=== PATIENT | female | born 1970 | race African-American/Black ===

== ENCOUNTER 2017-04-16 04:21 | Emergency (ER) | payer MEDICAID ==
[~2017-04-16] VITALS: Ht 170.2 cm; Wt 112.5 kg
[~2017-04-16 04:21] MED LIST: CLON0.5T; HYDR12.53
[2017-04-16] MEDS ORDERED: ALBUTEROL/IPRATROPIUM 2.5MG/0.5MG, 3 ML ONE (04:34)
[2017-04-16] MEDS ORDERED: DIPH25CA61 PO (04:54)
[2017-04-16] MEDS ORDERED: HYDR25TA11 PO (04:54)
[2017-04-16] MEDS ORDERED: POTA20TA6 PO (04:54)
[2017-04-16] MEDS ORDERED: DOCU100C8 PO (04:54)
[2017-04-16] MEDS ORDERED: LISI-170 PO (04:54)
[2017-04-16] MEDS ORDERED: CARV12.52 PO (04:54)
[2017-04-16] MEDS ORDERED: FURO40TA6 PO (04:54)
[2017-04-16] MEDS ORDERED: methylPREDNISolone SOD SUCC 125 MG/2 ML ONE (05:15)
[2017-04-16] MEDS ORDERED: SODIUM CHLORIDE FLUSH 10ML SYR IVF ONE (05:30)
[2017-04-16] MEDS ORDERED: methylPREDNISolone SOD SUCC 125 MG/2 ML IVP ONE (05:30)
[2017-04-16] MEDS ORDERED: ALBUTEROL/IPRATROPIUM 2.5MG/0.5MG, 3 ML NPPB ONE (05:30)
[2017-04-16 06:05] LABS: DAU SCREEN DISCLAIMER
[2017-04-16 06:22] LABS: ASPARTATE AMINO TRANSFERASE 29 U/L (15-37); BLOOD UREA NITROGEN 10 mg/dL (7-18)
[2017-04-16 06:36] LABS: IS PT STATUS REG ER OR PRE ER? YES
[2017-04-16 07:28] VITALS: BP 157/113
== END 2017-04-16 08:13 | disposition left against medical advice (07) ==
LOC: ED 05:42
DX: I50.1 Left ventricular failure, unspecified (principal); J20.9 Acute bronchitis, unspecified; J45.909 Unspecified asthma, uncomplicated; F12.180 Cannabis abuse with cannabis-induced anxiety disorder; F15.180 Other stimulant abuse with stimulant-induced anxiety disorder; F17.210 Nicotine dependence, cigarettes, uncomplicated
CPT/HCPCS: 36415; 71010; 80053; 80307; 81001; 83605; 83880; 84443; 84484; 85025; 85610; 85730; 87040; 87086; 93005; 93971; 94640; 96374; 99285; J2930; J7620

== ENCOUNTER 2021-03-10 05:36 | Emergency (ER) | payer MEDICAID ==
[~2021-03-10 05:36] MED LIST changes: +CARV12.52 PO; +DIPH25CA61 PO; +DOCU100C33 PO; +FURO40TA6 PO; +HYDR-826 PO; +HYDR12.517; -HYDR12.53; +LISI-170 PO; +POTA20TA6 PO
--- NOTE | 2021-03-10 06:00 | NUR ---
PT STATES RIGHT LEG WAS ULTRASOUND 3 DAYS AGO Addendum: 03/10/21 at 0602 by [email or web address] PT STATES THE LEFT HAS HAD CHONIC ISSUES, BUT THIS LAST WEEK HAS BEEN WORSE AND DID ULTRASOUND ON R LEG AT [facility]. WENT TO [facility] THE LAST MONTH AND HALF AND ADMITTED FOR CHF. EDEMA CAME ON SHOCKED PT AT [facility].
--- NOTE | 2021-03-10 06:26 | NUR ---
PAIN ON THE LEFT LEG. PT STATES IT HAS THE LEFT ANIYA WAS FINE A WEEK AGO.
--- NOTE | 2021-03-10 06:26 | NUR ---
CHF 4 OR 5 YEARS BUT NOT CAUSE. HTN TAKES LINSIPRIL, CORBETALOL. XARALETO.
[2021-03-10] MEDS ORDERED: ACETAMINOPHEN 325 MG TABLET PO ONE (06:30)
[2021-03-10] MEDS ORDERED: ACETAMINOPHEN 325 MG TABLET ONE (06:35)
--- NOTE | 2021-03-10 06:54 | NUR ---
REPORT GIVEN TO JOAN ZULUAGA.
--- NOTE | 2021-03-10 07:00 | NUR ---
REPORT FROM NEIDA ZULUAGA.
[2021-03-10 07:08] LABS: ALBUMIN 2.9 g/dL (3.4-5.0); ANION GAP 9 mmol/L (5-15); CALCIUM 8.7 mg/dL (8.5-10.1); CHLORIDE 108 mmol/L (98-107)
[2021-03-10 07:18] LABS: BASOPHILS % (AUTO) 1 % (0-1); EOSINOPHILS % (AUTO) 0 % (1-7); LYMPHOCYTES % (AUTO) 9 % (22-44); MEAN CORPUSCULAR HEMOGLOBIN 23.6 pg (27.0-34.8); MEAN CORPUSCULAR HGB CONC 30.9 g/dL (32.4-35.8); MEAN PLATELET VOLUME 7.8 fL (7.4-10.4); MONOCYTES % (AUTO) 6 % (2-9); NEUTROPHILS % (AUTO) 85 % (42-75); PLATELET COUNT 385 x10^3/uL (130-400); RED BLOOD COUNT 4.98 x10^6/uL (3.82-5.3); RED CELL DISTRIBUTION WIDTH 24.7 % (9.6-15.2)
[2021-03-10 07:40] LABS: MD MORPH REVIEW ONLY
[2021-03-10 07:41] LABS: ANISOCYTOSIS 2+; HYPOCHROMIA 1+; MICROCYTOSIS 1+; POLYCHROMASIA 1+
[2021-03-10 07:42] LABS: <PLATELET ESTIMATE> ADEQUATE; <PLT MORPHOLOGY> NORMAL PLT MORPH
[2021-03-10 08:04] VITALS: BP 94/75
--- NOTE | 2021-03-10 08:05 | NUR ---
RECHECK. PT SITTING IN BED VSS NAD.
[2021-03-10] MEDS ORDERED: NEOSPORIN OINT. PKT 1 PACKET ONE (08:51)
== END 2021-03-10 09:20 | disposition home or self-care (01) ==
LOC: ED 09:08
DX: G89.29 Other chronic pain (principal); M79.661 Pain in right lower leg; M79.662 Pain in left lower leg; R60.0 Localized edema; I11.0 Hypertensive heart disease with heart failure; I50.9 Heart failure, unspecified; I25.10 Atherosclerotic heart disease of native coronary artery without angina pectoris; I25.2 Old myocardial infarction; E66.9 Obesity, unspecified
CPT/HCPCS: 36415; 71045; 80048; 82040; 83880; 85025; 93005; 99285

== ENCOUNTER 2021-03-20 04:43 | Inpatient (IN) | payer MEDICAID ==
[~2021-03-20] VITALS: Ht 172.7 cm; Wt 118.1 kg
[2021-03-20] MEDS ORDERED: SODIUM CHLORIDE 0.9% 1,000 ML IV ONE (05:00)
[2021-03-20] MEDS ORDERED: ASPIRIN 81 MG TABLET CHEW PO ONE (05:00)
--- NOTE | 2021-03-20 05:12 | NUR ---
[facility]IB [facility] STATES PT HAS HAD SOB X 1.5 WEEKS, WORSE THIS MORINING. PT ALSO HAS LEFT LEG SWELLING WITH ULCER ON ANKLE WITH BANDAGE THAT WAS TREATED 2 DAYS PRIROR. PT STATES HAD RECTAL BLEEDING THE LAST 4 DAYS ABOUT A PINT LOST IN THAT TIME FRAME.
--- NOTE | 2021-03-20 05:19 | NUR ---
ULTRASOUND AT BEDSIDE AND XRAYS OF CHEST.
[2021-03-20] MEDS ORDERED: SODIUM CHLORIDE 0.9% 1,000ML IVBOLUS ONE (05:30)
[2021-03-20] MEDS ORDERED: ASPIRIN 81 MG TABLET CHEW ONE (05:34)
--- NOTE | 2021-03-20 06:07 | NUR ---
PT STATES "SHE STOPPED SMOKING METH 3 MONTHS AGO AFTER FINDING OUT THAT HER HEART IS NOT FUNCTIONING PROPERLY." STATES THAT HER BOYFRIEND SMOKES IT EVERY DAY. SHE STATE SHE WANT TO GET OUT OF HER CURRENT LIVING CONDITION.
[2021-03-20 06:13] LABS: BASOPHILS % (AUTO) 1 % (0-1); EOSINOPHILS % (AUTO) 2 % (1-7); LYMPHOCYTES % (AUTO) 7 % (22-44); MEAN CORPUSCULAR HEMOGLOBIN 23.4 pg (27.0-34.8); MEAN CORPUSCULAR HGB CONC 30.4 g/dL (32.4-35.8); MEAN PLATELET VOLUME 7.7 fL (7.4-10.4); MONOCYTES % (AUTO) 8 % (2-9); NEUTROPHILS % (AUTO) 83 % (42-75); PLATELET COUNT 233 x10^3/uL (130-400); RED BLOOD COUNT 3.94 x10^6/uL (3.82-5.3); RED CELL DISTRIBUTION WIDTH 26.4 % (9.6-15.2)
[2021-03-20 06:19] LABS: ALBUMIN 2.5 g/dL (3.4-5.0); ANION GAP 5 mmol/L (5-15); CALCIUM 8.5 mg/dL (8.5-10.1); CHLORIDE 111 mmol/L (98-107); CREATININE 1.63 mg/dL (0.55-1.02)
[2021-03-20 06:23] LABS: TROPONIN I 0.017 ng/mL (0.000-0.045)
[2021-03-20] MEDS ORDERED: ALBUTEROL/IPRATROPIUM 2.5MG/0.5MG, 3 ML NPPB ONE (06:30)
[2021-03-20] MEDS ORDERED: ALBUTEROL/IPRATROPIUM 2.5MG/0.5MG, 3 ML ONE (06:32)
[2021-03-20 06:34] LABS: MD MORPH REVIEW ONLY
[2021-03-20 06:36] LABS: ANISOCYTOSIS 2+; HYPOCHROMIA 2+; MICROCYTOSIS 1+
[2021-03-20 06:37] LABS: OVALOCYTES 1+; POLYCHROMASIA 1+
[2021-03-20 06:38] LABS: <PLATELET ESTIMATE> ADEQUATE; <PLT MORPHOLOGY> NORMAL PLT MORPH; SPHEROCYTES 1+; TARGET CELLS 1+
[2021-03-20] MEDS ORDERED: xarelto (06:58)
[2021-03-20] MEDS ORDERED: spironolactone (06:58)
[2021-03-20] MEDS ORDERED: VANCOMYCIN 2,500 MG in SODIUM CHLORIDE 0.9% 500 ML IV ONE (07:00)
[2021-03-20] MEDS ORDERED: DILTIAZEM 5 MG/ML, 5ML IVPush ONE (07:00)
[2021-03-20] MEDS ORDERED: DILTIAZEM 125 MG in SODIUM CHLORIDE 0.9% 100 ML IV SCH (07:00)
[2021-03-20] MEDS ORDERED: VANCOMYCIN PER PHARMACY MC ONE (07:00)
--- NOTE | 2021-03-20 07:04 | NUR ---
REPORT GIVEN TO ASHLI ZULUAGA.
--- NOTE | 2021-03-20 07:08 | NUR ---
Patient to receive antibiotics. Verified with ROYCE Myers, that no blood cultures are necessary prior to antibiotic admin.
[2021-03-20] MEDS ORDERED: DILTIAZEM 5 MG/ML, 5ML ONE (07:23)
--- NOTE | 2021-03-20 07:35 | NUR ---
LATE ENTRY D/T PT CARE: THIS IS A 51 YO F BEING ADMITTED FOR AFIB W/ RVR AND CELLULITIS OF THE LT LWR LEG. PT HR 130'S, ON 4L NC, DOES NOT WEAR HOME O2. PT ABLE TO MAINTAIN SATS >92% ON 2L NC. PT HAS LARGE OPEN OOZING WOUND TO LEFT LEG. 2ND PIV STARTED BY CELESTINO DUEÑAS. CARDIZEM PUSH GIVEN AND DRIP STARTED PER EMAR. AWAITING DONAVAN FROM PHARMACY.
[2021-03-20] MEDS ORDERED: MORPHINE SULFATE 4 MG/ML, 1ML ONE (07:54)
--- NOTE | 2021-03-20 07:59 | NUR ---
PT MEDICATED W/ 4MG MORPHINE PER VERBAL ORDER FROM .
[2021-03-20] MEDS ORDERED: xanax (08:02)
--- NOTE | 2021-03-20 08:11 | NUR ---
REPORT GIVEN TO OMAR ZULUAGA. PT READY FOR TRANSPORT AT THIS TIME. CARDIZEM, VANCO AND NS INFUSING APPROPRIATELY. PT RESTING ON GURNEY. VS UNCHANGED FROM PREVIOUS ASSESSMENT, CAR.
[2021-03-20] MEDS ORDERED: ONDANSETRON 2MG/ML, 2ML IVPush PRN (08:30)
[2021-03-20] MEDS ORDERED: hydrALAzine 20 MG/ML, 1ML IVPush PRN (08:30)
[2021-03-20] MEDS ORDERED: ACETAMINOPHEN 325 MG TABLET PO PRN (08:30)
[2021-03-20] MEDS ORDERED: NITROGLYCERIN 0.4 MG BOTTLE (25 TABS) SL PRN (08:30)
[2021-03-20] MEDS ORDERED: MELATONIN 5 MG TABLET PO PRN (08:30)
[2021-03-20] MEDS ORDERED: HYDROcodone/APAP 5/325 TABLET PO PRN (08:30)
[2021-03-20] MEDS ORDERED: MORPHINE SULFATE 4 MG/ML, 1ML IVPush ONE (09:00)
[2021-03-20] MEDS: LISINOPRIL 5 MG TABLET PO SCH (09:27)
[2021-03-20] MEDS: CARVEDILOL 25 MG TABLET PO SCH ×2 (09:27→20:33)
[2021-03-20] MEDS: SPIRONOLACTONE 25 MG TABLET PO SCH (09:27)
[2021-03-20] MEDS ORDERED: DILTIAZEM 5 MG/ML, 5ML IVPush PRN (09:30)
[2021-03-20 12:37] VITALS: BP 122/66
[2021-03-20 14:50] VITALS: BP 88/68
[2021-03-20] MEDS ORDERED: SODIUM CHLORIDE 0.9%, 500ML IVBOLUS ONE (15:00)
[2021-03-20 15:40] VITALS: BP 105/76
[2021-03-20 18:52] VITALS: BP 110/79
[2021-03-20 20:33] VITALS: BP 93/63
[2021-03-20] MEDS: RIVAROXABAN 20 MG TABLET PO SCH (20:33)
[2021-03-20] MEDS: FUROSEMIDE 20 MG/2 ML IV SCH (20:33)
[2021-03-20] MEDS: CEFTRIAXONE 1,000 MG in DEXTROSE 5% 50 ML IVPB SCH (20:33)
[2021-03-20] MEDS: DOXYCYCLINE 100MG TABLET PO SCH (20:33)
[2021-03-21 01:31] VITALS: BP 89/64
[2021-03-21 04:59] LABS: MEAN CORPUSCULAR HGB CONC 30.7 g/dL (32.4-35.8); MEAN PLATELET VOLUME 7.8 fL (7.4-10.4); PLATELET COUNT 251 x10^3/uL (130-400); RED BLOOD COUNT 3.64 x10^6/uL (3.82-5.3); RED CELL DISTRIBUTION WIDTH 25.8 % (9.6-15.2)
[2021-03-21 05:12] LABS: ANION GAP 5 mmol/L (5-15); CALCIUM 8.3 mg/dL (8.5-10.1); CHLORIDE 111 mmol/L (98-107)
[2021-03-21 05:14] LABS: CREATININE 1.59 mg/dL (0.55-1.02)
[2021-03-21 05:48] LABS: MD YES
[2021-03-21 05:49] LABS: EOS#(MANUAL) 0.29 x10^3/uL (0.0-0.4); EOS% (MANUAL) 3 % (1-7); LYMPH#(MANUAL) 1.18 x10^3/uL (1-3.4); LYMPHS% (MANUAL) 12 % (22-44); MONOS#(MANUAL) 0.69 x10^3/uL (0.3-2.7); MONOS% (MANUAL) 7 % (2-9); SEG#(MANUAL) 7.64 x10^3/uL (1.8-6.8); SEGS% (MANUAL) 78 % (42-75)
[2021-03-21 05:50] LABS: ANISOCYTOSIS 1+; HYPOCHROMIA 1+; MICROCYTOSIS 1+; POLYCHROMASIA 1+
[2021-03-21 05:51] LABS: SPHEROCYTES 1+; TARGET CELLS 1+
[2021-03-21 05:52] LABS: <PLATELET ESTIMATE> ADEQUATE; <PLT MORPHOLOGY> NORMAL PLT MORPH
[2021-03-21] MEDS: FUROSEMIDE 20 MG/2 ML IV SCH (06:19)
[2021-03-21] MEDS: CARVEDILOL 25 MG TABLET PO SCH ×2 (06:19→17:50)
[2021-03-21 07:19] VITALS: BP 104/61
[2021-03-21] MEDS: LISINOPRIL 5 MG TABLET PO SCH (09:00)
[2021-03-21] MEDS: SPIRONOLACTONE 25 MG TABLET PO SCH (09:12)
[2021-03-21] MEDS: DOXYCYCLINE 100MG TABLET PO SCH ×2 (09:12→19:58)
[2021-03-21 11:00] LABS: AMPHETAMINE SCREEN, URINE Positive (Negative); BENZODIAZEPINE SCREEN, URINE Negative (Negative); CANNABINOID SCREEN, URINE Positive (Negative); COCAINE SCREEN, URINE Negative (Negative); METHADONE SCREEN, URINE Negative (Negative); OPIATE SCREEN, URINE Positive (Negative)
[2021-03-21] MEDS ORDERED: DILTIAZEM 5 MG/ML, 5ML IVPush PRN (11:00)
[2021-03-21 11:16] LABS: BARBITURATE SCREEN, URINE Negative (Negative)
[2021-03-21 11:56] VITALS: BP 100/70
[2021-03-21 17:45] VITALS: BP 118/85
[2021-03-21] MEDS: FUROSEMIDE 40 MG TABLET PO SCH (17:50)
[2021-03-21] MEDS: RIVAROXABAN 20 MG TABLET PO SCH (17:50)
[2021-03-21 19:52] VITALS: BP 104/63
[2021-03-21] MEDS: CEFTRIAXONE 1,000 MG in DEXTROSE 5% 50 ML IVPB SCH (19:58)
[2021-03-22 00:37] VITALS: BP 109/57
[2021-03-22 05:39] LABS: MEAN CORPUSCULAR HEMOGLOBIN 23.7 pg (27.0-34.8); MEAN CORPUSCULAR HGB CONC 30.7 g/dL (32.4-35.8); MEAN PLATELET VOLUME 7.7 fL (7.4-10.4); PLATELET COUNT 247 x10^3/uL (130-400); RED BLOOD COUNT 3.62 x10^6/uL (3.82-5.3); RED CELL DISTRIBUTION WIDTH 25.8 % (9.6-15.2)
[2021-03-22 05:50] LABS: ANION GAP 3 mmol/L (5-15); CHLORIDE 107 mmol/L (98-107); CREATININE 1.11 mg/dL (0.55-1.02)
[2021-03-22 05:54] LABS: TOTAL IRON BINDING CAPACITY 334 mcg/dL (250-450)
[2021-03-22 06:24] LABS: LYMPH#(MANUAL) 1.44 x10^3/uL (1-3.4); LYMPHS% (MANUAL) 14 % (22-44); MD YES; SEG#(MANUAL) 7.73 x10^3/uL (1.8-6.8); SEGS% (MANUAL) 75 % (42-75)
[2021-03-22 06:25] LABS: <PLATELET ESTIMATE> ADEQUATE; <PLT MORPHOLOGY> NORMAL PLT MORPH; EOS#(MANUAL) 0.31 x10^3/uL (0.0-0.4); EOS% (MANUAL) 3 % (1-7); METAMYELOCYTES% (MANUAL) 1 % (0-1); MONOS#(MANUAL) 0.62 x10^3/uL (0.3-2.7); MONOS% (MANUAL) 6 % (2-9); MYELOCYTES% (MANUAL) 1 % (0-0)
[2021-03-22 06:28] LABS: ANISOCYTOSIS 2+; MICROCYTOSIS 2+
[2021-03-22 06:30] LABS: HYPOCHROMIA 2+
[2021-03-22] MEDS: CARVEDILOL 25 MG TABLET PO SCH ×2 (06:37→17:25)
[2021-03-22] MEDS: FUROSEMIDE 40 MG TABLET PO SCH ×2 (06:37→17:25)
[2021-03-22 06:39] LABS: % IRON SATURATION 12 % (20-55); IRON LEVEL 39 mcg/dL (50-170)
[2021-03-22 07:18] VITALS: BP 107/70
[2021-03-22] MEDS: LISINOPRIL 5 MG TABLET PO SCH (08:23)
[2021-03-22] MEDS: SPIRONOLACTONE 25 MG TABLET PO SCH (08:23)
[2021-03-22] MEDS: DOXYCYCLINE 100MG TABLET PO SCH (08:24)
[2021-03-22] MEDS ORDERED: POLYETHYLENE GLYCOL 17 GM PACKET NG PRN (09:00)
[2021-03-22] MEDS: SENNA/DOCUSATE TABLET PO SCH (09:32)
[2021-03-22 12:43] VITALS: BP 130/84
[2021-03-22] MEDS: IRON SUCROSE COMPLEX 100MG/5ML IV SCH (12:52)
[2021-03-22] MEDS: CIPROFLOXACIN/PMX 400MG/200ML 200 ML IV SCH (12:52)
[2021-03-22] MEDS: RIVAROXABAN 20 MG TABLET PO SCH (17:25)
[2021-03-22 19:46] VITALS: BP 104/66
[2021-03-23 00:23] VITALS: BP 100/65
[2021-03-23] MEDS: CIPROFLOXACIN/PMX 400MG/200ML 200 ML IV SCH ×2 (00:58→13:58)
[2021-03-23] MEDS: FUROSEMIDE 40 MG TABLET PO SCH ×2 (06:18→18:36)
[2021-03-23] MEDS: CARVEDILOL 25 MG TABLET PO SCH ×2 (06:18→18:36)
[2021-03-23 07:05] VITALS: BP 122/74
[2021-03-23 07:40] LABS: MEAN CORPUSCULAR HEMOGLOBIN 23.9 pg (27.0-34.8); MEAN PLATELET VOLUME 7.5 fL (7.4-10.4); PLATELET COUNT 284 x10^3/uL (130-400); RED BLOOD COUNT 3.62 x10^6/uL (3.82-5.3); RED CELL DISTRIBUTION WIDTH 25.5 % (9.6-15.2)
[2021-03-23 07:45] LABS: ANION GAP 4 mmol/L (5-15); CALCIUM 8.1 mg/dL (8.5-10.1); CHLORIDE 107 mmol/L (98-107)
[2021-03-23 07:46] LABS: CREATININE 0.91 mg/dL (0.55-1.02)
[2021-03-23 08:22] LABS: MD YES
[2021-03-23 08:24] LABS: <PLATELET ESTIMATE> ADEQUATE; <PLT MORPHOLOGY> NORMAL PLT MORPH; ANISOCYTOSIS 2+; EOS% (MANUAL) 1 % (1-7); HYPOCHROMIA 1+; LYMPH#(MANUAL) 0.29 x10^3/uL (1-3.4); LYMPHS% (MANUAL) 3 % (22-44); MONOS#(MANUAL) 0.29 x10^3/uL (0.3-2.7); MONOS% (MANUAL) 3 % (2-9); POLYCHROMASIA 1+; SEG#(MANUAL) 8.84 x10^3/uL (1.8-6.8); SEGS% (MANUAL) 93 % (42-75); STOMATOCYTES 1+
[2021-03-23 08:25] LABS: MICROCYTOSIS 1+
[2021-03-23] MEDS: SENNA/DOCUSATE TABLET PO SCH (09:54)
[2021-03-23] MEDS: SPIRONOLACTONE 25 MG TABLET PO SCH (09:54)
[2021-03-23] MEDS: IRON SUCROSE COMPLEX 100MG/5ML IV SCH (09:54)
[2021-03-23] MEDS: LISINOPRIL 5 MG TABLET PO SCH (09:54)
[2021-03-23] MEDS ORDERED: DILTIAZEM 120 MG CAP.ER.24H PO SCH (11:00)
[2021-03-23 12:45] VITALS: BP 114/78
[2021-03-23 18:10] VITALS: BP 121/74
[2021-03-23] MEDS: RIVAROXABAN 20 MG TABLET PO SCH (18:36)
[2021-03-24 00:50] VITALS: BP 113/74
[2021-03-24 05:30] LABS: MEAN CORPUSCULAR HEMOGLOBIN 23.7 pg (27.0-34.8); MEAN CORPUSCULAR HGB CONC 30.5 g/dL (32.4-35.8); MEAN PLATELET VOLUME 7.3 fL (7.4-10.4); PLATELET COUNT 301 x10^3/uL (130-400); RED BLOOD COUNT 3.38 x10^6/uL (3.82-5.3); RED CELL DISTRIBUTION WIDTH 25.2 % (9.6-15.2)
[2021-03-24 05:34] LABS: ANION GAP 2 mmol/L (5-15); CALCIUM 7.8 mg/dL (8.5-10.1); CHLORIDE 109 mmol/L (98-107); CREATININE 0.71 mg/dL (0.55-1.02)
[2021-03-24 05:55] LABS: MD YES
[2021-03-24 05:56] LABS: BAND#(MANUAL) 0.11 x10^3/uL; BANDS%(MANUAL) 1 % (0-7); LYMPH#(MANUAL) 1.47 x10^3/uL (1-3.4); LYMPHS% (MANUAL) 13 % (22-44); MONOS#(MANUAL) 0.79 x10^3/uL (0.3-2.7); MONOS% (MANUAL) 7 % (2-9); MYELOCYTES# (MANUAL) 0.11 x10^3/uL (0-0); MYELOCYTES% (MANUAL) 1 % (0-0); SEG#(MANUAL) 8.81 x10^3/uL (1.8-6.8); SEGS% (MANUAL) 78 % (42-75)
[2021-03-24 05:57] LABS: <PLATELET ESTIMATE> ADEQUATE; <PLT MORPHOLOGY> NORMAL PLT MORPH; ANISOCYTOSIS 2+; HYPOCHROMIA 1+; MICROCYTOSIS 1+; POLYCHROMASIA 1+
[2021-03-24 06:13] VITALS: BP 117/75
[2021-03-24] MEDS: CARVEDILOL 25 MG TABLET PO SCH ×2 (06:16→18:52)
[2021-03-24] MEDS: FUROSEMIDE 40 MG TABLET PO SCH ×2 (06:16→18:52)
[2021-03-24] MEDS: CIPROFLOXACIN/PMX 400MG/200ML 200 ML IV SCH ×2 (06:16→18:51)
[2021-03-24 07:32] VITALS: BP 102/63
[2021-03-24] MEDS: IRON SUCROSE COMPLEX 100MG/5ML IV SCH (09:57)
[2021-03-24] MEDS: SPIRONOLACTONE 25 MG TABLET PO SCH (09:58)
[2021-03-24] MEDS: LISINOPRIL 5 MG TABLET PO SCH (09:58)
[2021-03-24] MEDS: DILTIAZEM 240 MG CAP.ER.24H PO SCH (09:58)
[2021-03-24] MEDS: SENNA/DOCUSATE TABLET PO SCH (09:58)
[2021-03-24 10:05] VITALS: BP 120/64
[2021-03-24 12:53] VITALS: BP 121/66
[2021-03-24 18:32] VITALS: BP 144/78
[2021-03-24] MEDS: RIVAROXABAN 20 MG TABLET PO SCH (18:52)
[2021-03-25] VITALS (12 sets, daily range): BP systolic 106–146; BP diastolic 40–97
[2021-03-25 06:07] LABS: CREATININE 0.73 mg/dL (0.55-1.02)
[2021-03-25 06:11] LABS: MEAN CORPUSCULAR HEMOGLOBIN 23.5 pg (27.0-34.8); MEAN PLATELET VOLUME 7.1 fL (7.4-10.4); PLATELET COUNT 310 x10^3/uL (130-400); RED BLOOD COUNT 3.38 x10^6/uL (3.82-5.3); RED CELL DISTRIBUTION WIDTH 25.8 % (9.6-15.2)
[2021-03-25 06:24] LABS: ANION GAP 3 mmol/L (5-15); CHLORIDE 107 mmol/L (98-107)
[2021-03-25] MEDS: CARVEDILOL 25 MG TABLET PO SCH ×2 (06:38→17:22)
[2021-03-25] MEDS: CIPROFLOXACIN/PMX 400MG/200ML 200 ML IV SCH ×2 (06:38→17:21)
[2021-03-25 06:44] LABS: MD YES
[2021-03-25 06:46] LABS: EOS#(MANUAL) 0.23 x10^3/uL (0.0-0.4); EOS% (MANUAL) 2 % (1-7); LYMPH#(MANUAL) 0.81 x10^3/uL (1-3.4); LYMPHS% (MANUAL) 7 % (22-44); METAMYELOCYTES# (MANUAL) 0.46 x10^3/uL (0-0); METAMYELOCYTES% (MANUAL) 4 % (0-1); MONOS#(MANUAL) 1.04 x10^3/uL (0.3-2.7); MONOS% (MANUAL) 9 % (2-9); MYELOCYTES# (MANUAL) 0.12 x10^3/uL (0-0); MYELOCYTES% (MANUAL) 1 % (0-0); SEG#(MANUAL) 8.86 x10^3/uL (1.8-6.8); SEGS% (MANUAL) 77 % (42-75)
[2021-03-25 06:48] LABS: ANISOCYTOSIS 2+
[2021-03-25 06:49] LABS: HYPOCHROMIA 1+; MICROCYTOSIS 2+; POLYCHROMASIA 1+
[2021-03-25 06:50] LABS: <PLATELET ESTIMATE> ADEQUATE; <PLT MORPHOLOGY> NORMAL PLT MORPH
[2021-03-25] MEDS: SENNA/DOCUSATE TABLET PO SCH (09:00)
--- NOTE | 2021-03-25 09:56 | NUR ---
DALIA SPARKS - Fall Risk Medication(s) present and receiving anticoagulants.
[2021-03-25] MEDS: SPIRONOLACTONE 25 MG TABLET PO SCH (10:56)
[2021-03-25] MEDS: FUROSEMIDE 40 MG TABLET PO SCH ×2 (10:56→17:22)
[2021-03-25] MEDS: DILTIAZEM 240 MG CAP.ER.24H PO SCH (10:56)
[2021-03-25] MEDS: LISINOPRIL 5 MG TABLET PO SCH (10:57)
[2021-03-25] MEDS: RIVAROXABAN 20 MG TABLET PO SCH (17:22)
[2021-03-26 02:51] VITALS: BP 124/60
[2021-03-26 04:46] LABS: MEAN CORPUSCULAR HEMOGLOBIN 24.1 pg (27.0-34.8); MEAN CORPUSCULAR HGB CONC 30.6 g/dL (32.4-35.8); MEAN PLATELET VOLUME 7.4 fL (7.4-10.4); PLATELET COUNT 311 x10^3/uL (130-400); RED BLOOD COUNT 3.42 x10^6/uL (3.82-5.3); RED CELL DISTRIBUTION WIDTH 24.9 % (9.6-15.2)
[2021-03-26 04:59] LABS: CHLORIDE 105 mmol/L (98-107)
[2021-03-26 05:00] LABS: ANION GAP 2 mmol/L (5-15); CALCIUM 7.9 mg/dL (8.5-10.1)
[2021-03-26 05:01] LABS: CREATININE 0.95 mg/dL (0.55-1.02)
[2021-03-26 05:37] LABS: MD YES
[2021-03-26 05:40] LABS: EOS#(MANUAL) 0.33 x10^3/uL (0.0-0.4); EOS% (MANUAL) 3 % (1-7); LYMPH#(MANUAL) 1.44 x10^3/uL (1-3.4); LYMPHS% (MANUAL) 13 % (22-44); MONOS#(MANUAL) 0.78 x10^3/uL (0.3-2.7); MONOS% (MANUAL) 7 % (2-9); MYELOCYTES# (MANUAL) 0.22 x10^3/uL (0-0); MYELOCYTES% (MANUAL) 2 % (0-0); SEG#(MANUAL) 8.33 x10^3/uL (1.8-6.8); SEGS% (MANUAL) 75 % (42-75)
[2021-03-26 05:41] LABS: ANISOCYTOSIS 2+; HYPOCHROMIA 1+; MICROCYTOSIS 1+; POLYCHROMASIA 1+
[2021-03-26 05:42] LABS: <PLATELET ESTIMATE> ADEQUATE; <PLT MORPHOLOGY> NORMAL PLT MORPH
[2021-03-26] MEDS: CIPROFLOXACIN/PMX 400MG/200ML 200 ML IV SCH (06:27)
[2021-03-26] MEDS: CARVEDILOL 25 MG TABLET PO SCH (06:27)
[2021-03-26 07:12] VITALS: BP 131/87
[2021-03-26] MEDS: FUROSEMIDE 40 MG TABLET PO SCH (08:59)
[2021-03-26] MEDS: SPIRONOLACTONE 25 MG TABLET PO SCH (08:59)
[2021-03-26] MEDS: LISINOPRIL 5 MG TABLET PO SCH (09:00)
[2021-03-26] MEDS: DILTIAZEM 240 MG CAP.ER.24H PO SCH (09:00)
[2021-03-26] MEDS: SENNA/DOCUSATE TABLET PO SCH (09:04)
[2021-03-26] MEDS ORDERED: DILT240C55 PO (12:59)
[2021-03-26] MEDS ORDERED: FERR-36 PO (12:59)
[2021-03-26] MEDS ORDERED: CARV25TA12 PO (12:59)
[2021-03-26] MEDS ORDERED: SPIR25TA PO (12:59)
[2021-03-26] MEDS ORDERED: FURO40TA6 PO (12:59)
[2021-03-26] MEDS ORDERED: CIPR500T87 PO (12:59)
[2021-03-26] MEDS ORDERED: RIVA20TA PO (12:59)
[2021-03-26] MEDS ORDERED: LISI5TAB7 PO (12:59)
[2021-03-26] MEDS ORDERED: CIPROFLOXACIN 500 MG TABLET PO SCH (18:00)
[2021-03-27] MEDS ORDERED: FERROUS SULFATE 325 MG TABLET PO SCH (09:00)
== END 2021-03-26 15:18 | disposition home or self-care (01) | DRG 133 ==
LOC: ED 05:20 → EDIP 06:58 → SUATTDRO 07:07 → EDIP 07:28 → UNDOADMIN 07:28 → 5SO 08:31
PROVIDERS: ADMIT Hospitalist; ATTEND Family Medicine
DX: J96.21 Acute and chronic respiratory failure with hypoxia (principal); I27.20 Pulmonary hypertension, unspecified; N17.9 Acute kidney failure, unspecified; L03.116 Cellulitis of left lower limb; E66.2 Morbid (severe) obesity with alveolar hypoventilation; N18.30 Chronic kidney disease, stage 3 unspecified; I50.22 Chronic systolic (congestive) heart failure; I13.0 Hypertensive heart and chronic kidney disease with heart failure and stage 1 through stage 4 chronic kidney disease, or unspecified chronic kidney disease; I42.9 Cardiomyopathy, unspecified; D50.9 Iron deficiency anemia, unspecified; F15.10 Other stimulant abuse, uncomplicated; I48.91 Unspecified atrial fibrillation; B18.2 Chronic viral hepatitis C; F17.210 Nicotine dependence, cigarettes, uncomplicated; I25.10 Atherosclerotic heart disease of native coronary artery without angina pectoris; J44.9 Chronic obstructive pulmonary disease, unspecified; R00.1 Bradycardia, unspecified; R53.81 Other malaise; Z68.39 Body mass index [BMI] 39.0-39.9, adult; I25.2 Old myocardial infarction; Z79.01 Long term (current) use of anticoagulants; Z88.0 Allergy status to penicillin
CPT/HCPCS: 36415; 71045; 80048; 80307; 82040; 82728; 83036; 83540; 83550; 83735; 83880; 84100; 84484; 85025; 85379; 87040; 87070; 87077; 87186; 87205; 93005; 93306; 93922; 93970; 96361; 96374; 96375; G0378; J0696; J0744; J1756; J3370; J1940; J7030; J7040

== ENCOUNTER → 2021-04-13 | Outpatient (CLI) | payer MEDICAID ==
[~2021-04-13] MED LIST changes: +CARV25TA12 PO; +CIPR500T87 PO; +DILT240C55 PO; +FERR-36 PO; +LISI5TAB7 PO; +RIVA20TA PO; +SPIR25TA PO; +spironolactone; +xanax; +xarelto
== END | disposition home or self-care (01) ==
LOC: WOUND 13:44
PROVIDERS: ATTEND Internal Medicine
DX: L03.116 Cellulitis of left lower limb (principal); B96.5 Pseudomonas (aeruginosa) (mallei) (pseudomallei) as the cause of diseases classified elsewhere; F19.10 Other psychoactive substance abuse, uncomplicated; I48.91 Unspecified atrial fibrillation; I27.20 Pulmonary hypertension, unspecified; I11.0 Hypertensive heart disease with heart failure; F15.10 Other stimulant abuse, uncomplicated; L84 Corns and callosities; D50.9 Iron deficiency anemia, unspecified; I25.10 Atherosclerotic heart disease of native coronary artery without angina pectoris; J44.9 Chronic obstructive pulmonary disease, unspecified; I25.2 Old myocardial infarction; G89.29 Other chronic pain; I13.0 Hypertensive heart and chronic kidney disease with heart failure and stage 1 through stage 4 chronic kidney disease, or unspecified chronic kidney disease; I50.22 Chronic systolic (congestive) heart failure; N18.30 Chronic kidney disease, stage 3 unspecified; N17.9 Acute kidney failure, unspecified; F17.210 Nicotine dependence, cigarettes, uncomplicated; E66.2 Morbid (severe) obesity with alveolar hypoventilation; Z68.39 Body mass index [BMI] 39.0-39.9, adult; Z88.0 Allergy status to penicillin; Z79.01 Long term (current) use of anticoagulants
CPT/HCPCS: 97597; 97598; 99215

== ENCOUNTER → 2021-04-21 | Outpatient (CLI) | payer MEDICAID | END | disposition home or self-care (01) | LOC: WOUND 10:19 | PROVIDERS: ATTEND Internal Medicine Cardiovascular Disease | DX: L03.116 Cellulitis of left lower limb (principal); B96.5 Pseudomonas (aeruginosa) (mallei) (pseudomallei) as the cause of diseases classified elsewhere; F19.10 Other psychoactive substance abuse, uncomplicated; I48.91 Unspecified atrial fibrillation; I27.20 Pulmonary hypertension, unspecified; F15.10 Other stimulant abuse, uncomplicated; L84 Corns and callosities; D50.9 Iron deficiency anemia, unspecified; I25.10 Atherosclerotic heart disease of native coronary artery without angina pectoris; J44.9 Chronic obstructive pulmonary disease, unspecified; I25.2 Old myocardial infarction; G89.29 Other chronic pain; I13.0 Hypertensive heart and chronic kidney disease with heart failure and stage 1 through stage 4 chronic kidney disease, or unspecified chronic kidney disease; I50.22 Chronic systolic (congestive) heart failure; N18.30 Chronic kidney disease, stage 3 unspecified; N17.9 Acute kidney failure, unspecified; F17.210 Nicotine dependence, cigarettes, uncomplicated; E66.2 Morbid (severe) obesity with alveolar hypoventilation; Z68.38 Body mass index [BMI] 38.0-38.9, adult; Z88.0 Allergy status to penicillin; Z79.01 Long term (current) use of anticoagulants | CPT/HCPCS: 99214 ==